=== PATIENT | male | born 1950 | race Caucasian/White ===

== ENCOUNTER 2017-11-20 11:00 | Emergency (ER) | payer OTHER, MEDICARE ==
[~2017-11-20] VITALS: Ht 182.9 cm; Wt 120.0 kg
[~2017-11-20 11:00] MED LIST: ACTOS30 MG PO; AMLODIPINE5 MG PO; ANDROGEL1 % OTHER; ATORVASTATI80 MG/TAB PO; ATORVASTATIN CA80 MG PO; BACLOFEN10 MG PO; CRESTOR20 MG PO; DEPO-MEDROL80 MG/ML IM; FUROSEMIDE20 MG PO; FUROSEMIDE40 MG PO; GLIPIZIDE10 M2 PO; GLIPIZIDE10 MG PO; KEFLEX500 M1 PO; LASIX 20 MG TAB20 MG PO; LOSARTAN POT100 MG PO; LYRICA50 MG PO; Levaquin PO; METOPROL TAR100 M1 PO; METOPROL TAR100 MG PO; METOPROL TAR25 MG PO; NAPROSYN500 MG PO; POT CHLORIDE10 ME1 PO; TERAZOSIN1 MG PO; TERAZOSIN2 MG PO; XALATAN0.005 % OD
[2017-11-20] MEDS ORDERED: PERCOCET 5/325M1 TAB PO (12:59)
[2017-11-20] MEDS ORDERED: EC-NAPROSYN500 MG PO (12:59)
[2017-11-20 13:53] VITALS: BP 150/80
== END 2017-11-20 13:43 | disposition home or self-care (01) | DRG 563 ==
LOC: ED 11:00
DX: S42.301A Unspecified fracture of shaft of humerus, right arm, initial encounter for closed fracture (principal); S20.211A Contusion of right front wall of thorax, initial encounter; E11.9 Type 2 diabetes mellitus without complications; I10 Essential (primary) hypertension; W01.0XXA Fall on same level from slipping, tripping and stumbling without subsequent striking against object, initial encounter; Y92.89 Other specified places as the place of occurrence of the external cause; Z96.652 Presence of left artificial knee joint; Z96.643 Presence of artificial hip joint, bilateral

== ENCOUNTER 2022-12-25 10:22 | Day surgery (SDC) | payer OTHER, MEDICARE ==
[~2022-12-25] VITALS: Ht 177.8 cm; Wt 104.3 kg
[~2022-12-25 10:22] MED LIST changes: +ASPIRIN 81 LOW81 MG PO; +BRIMONIDINE 0.025% IO; +DORZOLAMIDE HCL2 %; +EC-NAPROSYN500 MG PO; +JARDIANCE25 MG PO; +METFORMIN HYD1000 MG PO; +OZEMPIC 8 MG/3M1 INJ IJ; +PERCOCET 5/325M1 TAB PO
[2022-12-25 16:17] VITALS: BP 133/68
== END 2022-12-25 16:30 | disposition home or self-care (01) | DRG 483 ==
LOC: ORM 10:22
PROVIDERS: ATTEND Orthopaedic Surgery
PROC: 0RRJ00Z Replacement of Right Shoulder Joint with Reverse Ball and Socket Synthetic Substitute, Open Approach (ICD-10-PCS; principal; 2022-12-25)
PROC: 0LS30ZZ Reposition Right Upper Arm Tendon, Open Approach (ICD-10-PCS; 2022-12-25)
PROC: 0PPC04Z Removal of Internal Fixation Device from Right Humeral Head, Open Approach (ICD-10-PCS; 2022-12-25)
PROC: 3E0T3BZ Introduction of Anesthetic Agent into Peripheral Nerves and Plexi, Percutaneous Approach (ICD-10-PCS; 2022-12-25)
DX: M19.111 Post-traumatic osteoarthritis, right shoulder (principal); M87.221 Osteonecrosis due to previous trauma, right humerus; S46.211A Strain of muscle, fascia and tendon of other parts of biceps, right arm, initial encounter; T84.9XXA Unspecified complication of internal orthopedic prosthetic device, implant and graft, initial encounter; I10 Essential (primary) hypertension; E11.9 Type 2 diabetes mellitus without complications; X58.XXXA Exposure to other specified factors, initial encounter; Y83.1 Surgical operation with implant of artificial internal device as the cause of abnormal reaction of the patient, or of later complication, without mention of misadventure at the time of the procedure; Z79.84 Long term (current) use of oral hypoglycemic drugs; Z87.891 Personal history of nicotine dependence
CPT/HCPCS: C9290; J0131; J0690